=== PATIENT | male | born 1945 | race Caucasian/White ===

== ENCOUNTER 2018-03-20 17:13 | Day surgery (SDC) | payer MEDICARE ==
--- NOTE | 2018-03-20 17:43 | ER Report ---
History and Physical Time Seen By MD: 17:39 Hx. of Stated Complaint: abdominal pain in the lower right side for 12 hours. Patient has appendix and gallbladder still HPI/ROS CHIEF COMPLAINT: Abdominal pain HISTORY OF PRESENT ILLNESS: This is a 73-year-old male who presents to the emergency department for abdominal pain. Patient states that 9:00 this morning he was eating a bagel suddenly developed right lower quadrant pain. Did have some nausea associated with this, no vomiting. No dysuria or changes in bowel habits. Patient states he has had kidney stones in the past however this is different. No fevers, intermittent chills. No shortness of breath or chest pain. No headaches. No rashes. REVIEW OF SYSTEMS: Constitutional: As above. Eyes: No discharge. ENT: No sore throat. Cardiovascular: No chest pain, no palpitations. Respiratory: No cough, no shortness of breath. Gastrointestinal: As above. Genitourinary: No hematuria. Musculoskeletal: No back pain. Skin: No rashes. Neurological: No headache. Allergies: Coded Allergies: No Known Drug Allergies (Unverified , 11/19/12) Home Meds Active Scripts Hydrocodone Bit/Acetaminophen (NORCO 5-325 TABLET) 1 Each Tablet, 1-2 EACH PO q 4 h for PAIN, #14 TAB 0 Refills Prov:MIGUEL FERRO MD 03/20/18 Past Medical/Surgical History The patient has a past medical and surgical history of kidney stones, 3 episodes. Reviewed Nurses Notes: Yes Hx Smoking: No Exposure to Second Hand Smoke?: No Constitutional Vital Sign - Last 24 Hours 03/20/18 03/20/18 03/20/18 03/20/18 17:13 17:17 17:17 17:30 Temp 97.5 Pulse ??? 66 Resp 16 B/P (MAP) 168/88 (114) 168/88 125/87 (100) O2 Delivery Room Air 03/20/18 03/20/18 03/20/18 03/20/18 17:43 18:00 18:13 18:16 Pulse 72 76 B/P (MAP) 153/83 (106) Pulse Ox 92 85 O2 Flow Rate 2.0 03/20/18 03/20/18 03/20/18 18:30 19:01 19:13 B/P (MAP) 156/85 (108) 166/93 (117) Pulse Ox 95 Physical Exam General Appearance: The patient is alert, has no immediate need for airway p rotection and no signs of toxicity. Eyes: Pupils equal and round no pallor or injection. ENT, Mouth: Mucous membranes are moist. Respiratory: There are no retractions, lungs are clear to auscultation. Cardiovascular: Regular rate and rhythm, no murmurs, clicks or rubs. Gastrointestinal: Abdomen is soft , right lower quadrant pain at McBurney's point, positive rebound tenderness on the right, negative Toro sign. Very faint and hypoactive bowel sounds in all 4 quadrants. Skin: Warm and dry, no rashes. Musculoskeletal: Neck is supple non tender. Extremities are nontender, nonswollen and have full range of motion. DIFFERENTIAL DIAGNOSIS: After history and physical exam differential diagnosis was considered for abdominal pain including but not limited to appendicitis, cholecystitis, gastritis and urinary tract infection. Medical Decision Making Data Points Result Diagram: 03/20/18 1724 03/20/18 1724 Laboratory Hematology Test 03/20/18 17:24 03/20/18 18:58 Red Blood Count 5.47 M/uL (4.00-5.60) Mean Corpuscular Volume 93.4 fL (80.0-96.0) Mean Corpuscular Hemoglobin 31.5 pg (26.0-33.0) Mean Corpuscular Hemoglobin Concent 33.7 g/dL (32.0-36.0) Red Cell Distribution Width 13.9 % (11.5-14.5) Mean Platelet Volume 7.4 fL (7.2-11.1) Neutrophils (%) (Auto) 87.0 % (39.4-72.5) Lymphocytes (%) (Auto) 6.2 % (17.6-49.6) Monocytes (%) (Auto) 6.5 % (4.1-12.4) Eosinophils (%) (Auto) 0.1 % (0.4-6.7) Basophils (%) (Auto) 0.2 % (0.3-1.4) Nucleated RBC Relative Count (auto) 0.0 /100WBC Neutrophils # (Auto) 10.5 K/uL (2.0-7.4) Lymphocytes # (Auto) 0.8 K/uL (1.3-3.6) Monocytes # (Auto) 0.8 K/uL (0.3-1.0) Eosinophils # (Auto) 0.0 K/uL (0.0-0.5) Basophils # (Auto) 0.0 K/uL (0.0-0.1) Nucleated RBC Absolute Count (auto) 0.00 K/uL Sodium Level 137 mmol/L (137-145) Potassium Level 3.8 mmol/L (3.5-5.0) Chloride Level 106 mmol/L (98-107) Carbon Dioxide Level 25 mmol/L (22-30) Blood Urea Nitrogen 16 mg/dl (9-21) Creatinine 0.80 mg/dl (0.66-1.25) Glomerular Filtration Rate Calc > 60.0 Random Glucose 156 mg/dl (75-110) Calcium Level 9.3 mg/dl (8.4-10.2) Total Bilirubin 1.0 mg/dl (0.2-1.3) Aspartate Amino Transf (AST/SGOT) 26 U/L (0-35) Alanine Aminotransferase (ALT/SGPT) 28 U/L (0-56) Alkaline Phosphatase 95 U/L (0-126) Total Protein 7.6 g/dl (6.3-8.2) Albumin 4.2 g/dl (3.5-5.0) Lipase 49 U/L (23-300) Urine Color Yellow Urine Clarity Clear Urine pH 7.0 pH (4.8-9.5) Urine Specific [place] 1.035 Urine Protein Negative mg/dL (NEGATIVE) Urine Glucose (UA) Negative mg/dL (NEGATIVE) Urine Ketones Trace mg/dL (NEGATIVE) Urine Blood Negative (NEGATIVE) Urine Nitrite Negative (NEGATIVE) Urine Bilirubin Negative (NEGATIVE) Urine Urobilinogen Negative mg/dL (0.2-1.9) Urine Leukocyte Esterase Negative (NEGATIVE) Urine RBC 4 /HPF (0-2/HPF) Urine WBC <1 /HPF (0-5/HPF) Urine Squamous Epithelial Cells None /LPF (</=FEW) Urine Bacteria Negative /HPF (NONE-FEW) Urine Mucus None /HPF (NONE-FEW) Chemistry Test 03/20/18 17:24 03/20/18 18:58 White Blood Count 12.0 k/uL (4.5-11.0) Red Blood Count 5.47 M/uL (4.00-5.60) Hemoglobin 17.2 g/dL (14.0-18.0) Hematocrit 51.1 % (42.0-52.0) Mean Corpuscular Volume 93.4 fL (80.0-96.0) Mean Corpuscular Hemoglobin 31.5 pg (26.0-33.0) Mean Corpuscular Hemoglobin Concent 33.7 g/dL (32.0-36.0) Red Cell Distribution Width 13.9 % (11.5-14.5) Platelet Count 223 K/uL (150-450) Mean Platelet Volume 7.4 fL (7.2-11.1) Neutrophils (%) (Auto) 87.0 % (39.4-72.5) Lymphocytes (%) (Auto) 6.2 % (17.6-49.6) Monocytes (%) (Auto) 6.5 % (4.1-12.4) Eosinophils (%) (Auto) 0.1 % (0.4-6.7) Basophils (%) (Auto) 0.2 % (0.3-1.4) Nucleated RBC Relative Count (auto) 0.0 /100WBC Neutrophils # (Auto) 10.5 K/uL (2.0-7.4) Lymphocytes # (Auto) 0.8 K/uL (1.3-3.6) Monocytes # (Auto) 0.8 K/uL (0.3-1.0) Eosinophils # (Auto) 0.0 K/uL (0.0-0.5) Basophils # (Auto) 0.0 K/uL (0.0-0.1) Nucleated RBC Absolute Count (auto) 0.00 K/uL Glomerular Filtration Rate Calc > 60.0 Calcium Level 9.3 mg/dl (8.4-10.2) Total Bilirubin 1.0 mg/dl (0.2-1.3) Aspartate Amino Transf (AST/SGOT) 26 U/L (0-35) Alanine Aminotransferase (ALT/SGPT) 28 U/L (0-56) Alkaline Phosphatase 95 U/L (0-126) Total Protein 7.6 g/dl (6.3-8.2) Albumin 4.2 g/dl (3.5-5.0) Lipase 49 U/L (23-300) Urine Color Yellow Urine Clarity Clear Urine pH 7.0 pH (4.8-9.5) Urine Specific [place] 1.035 Urine Protein Negative mg/dL (NEGATIVE) Urine Glucose (UA) Negative mg/dL (NEGATIVE) Urine Ketones Trace mg/dL (NEGATIVE) Urine Blood Negative (NEGATIVE) Urine Nitrite Negative (NEGATIVE) Urine Bilirubin Negative (NEGATIVE) Urine Urobilinogen Negative mg/dL (0.2-1.9) Urine Leukocyte Esterase Negative (NEGATIVE) Urine RBC 4 /HPF (0-2/HPF) Urine WBC <1 /HPF (0-5/HPF) Urine Squamous Epithelial Cells None /LPF (</=FEW) Urine Bacteria Negative /HPF (NONE-FEW) Urine Mucus None /HPF (NONE-FEW) Urinalysis Test 03/20/18 18:58 Urine Color Yellow Urine Clarity Clear Urine pH 7.0 pH (4.8-9.5) Urine Specific [place] 1.035 Urine Protein Negative mg/dL (NEGATIVE) Urine Glucose (UA) Negative mg/dL (NEGATIVE) Urine Ketones Trace mg/dL (NEGATIVE) Urine Blood Negative (NEGATIVE) Urine Nitrite Negative (NEGATIVE) Urine Bilirubin Negative (NEGATIVE) Urine Urobilinogen Negative mg/dL (0.2-1.9) Urine Leukocyte Esterase Negative (NEGATIVE) Urine RBC 4 /HPF (0-2/HPF) Urine WBC <1 /HPF (0-5/HPF) Urine Squamous Epithelial Cells None /LPF (</=FEW) Urine Bacteria Negative /HPF (NONE-FEW) Urine Mucus None /HPF (NONE-FEW) EKG/Imaging Imaging Location: [facility] - [place] Patient: Mele Ramachandran : 1945 Visit/Account:[id number] Date of Sevice: 03/20/2018 CT ABDOMEN PELVIS W/ CON HISTORY: Right lower quadrant pain TECHNIQUE: Axial images were obtained through the abdomen and pelvis with intravenous contrast . One of the following dose optimization techniques was utilized in the performance of this exam: automated exposure control; adjustment of the mA and/or kv according to patient size; or use of iterative reconstruction technique. Specific details can be referenced in the facility's radiology CT exam operational policy. CONTRAST: 90 mL of Isovue-370 COMPARISON: CT abdomen/pelvis 01/03/2015. FINDINGS: Visualized lung bases: Negative. Hepatobiliary: Calcifications along the right lobe hepatic capsule. Simple hepatic cysts and a stable nodular enhancing 3.6 x 2.3 x 3.2 cm lesion within the left lobe of the liver which is likely a hemangioma Spleen: Negative. Adrenals: Negative. Pancreas: Negative. Kidneys/ureters/bladder: 8 mm left midpole renal lesion does not have the appearance of a simple cyst (series 2 image 46) which has slightly increased in conspicuity. No hydronephrosis. 4 mm simple left midpole renal cyst. Bowel/peritoneum/mesentery: Abnormal appendix. Appendix measures 12 mm in diameter with a thick enhancing wall and stranding of the adjacent fat consistent with acute appendicitis. No bowel obstruction, free air or abscess. Colonic diverticulosis without acute inflammatory change. Vessels: Negative. Lymph nodes: Negative. Pelvic genitourinary: Moderate prostate enlargement. Bones/body wall: Stable 8 mm sclerotic lesion within the right iliac bone, likely a bone island. Multilevel mild degenerative disc disease within the spine.. Other findings: None significant IMPRESSION: 1. Acute uncomplicated appendicitis. 2. Stable left lobe liver lesion most consistent with a hemangioma. 3. An 8 mm left midpole renal lesion does not have the appearance of a simple cyst and has slightly increased in conspicuity since prior examination. Consider six-month follow-up CT with and without contrast (renal mass protocol) for further evaluation. Results were called to MARIA ANTONIA PURDY at 03/20/2018 7:13 PM. Report Dictated By: Bryan Guerra MD at 03/20/2018 6:58 PM Report E-Signed By: Bryan Guerra MD at 03/20/2018 7:13 PM [id number] ED Course/Re-evaluation Clinical Indication for ER IV: Hydration, IV Access ED Course The patient was admitted to a room. A history and physical were obtained. Differential diagnoses were considered. An IV was started. A CBC, CMP and lipase were obtained. A 1 L normal saline bolus was given. 4 mg IV Zofran, 4 mg IV morphine were given. Patient had moderate to significant relief of symptoms after the pain medications.CBC showing white count of 12.0 with a left shift, chemistry showing glucose 156 otherwise unremarkable, unremarkable UA. A CT of the abdomen and pelvis Showing acute uncomplicated appendicitis, stable left lobe liver lesion most consistent with hemangioma. I reviewed the results with the patient. Did explain to him that this is not acute appendicitis, I recommendation was consultation with the general surgeon, the patient agreed. I did speak with Dr. Ferro, the surgeon on-call, the OR crew was contacted and called in. Patient was given 3.375 Zosyn and 20 mg IV famotidine. The patient's last oral intake was at 3 PM. The patient was admitted to the OR, Dr. Ferro did come down and speak with the patient regarding the surgery. No other questions or concerns at the time of admission. 03/20/2018 7:19:16 pm I did speak with Dr. Ferro, the surgeon on-call, rate discussed the case, the patient's will be admitted to the OR for an acute appendicitis. Last oral intake for the patient was at 1500, sips of kimberly ingris. Decision to Disposition Date: Mar 20, 2018 Decision to Disposition Time: 19:19 Depart Departure Latest Vital Signs Vital Signs Date Time Temp Pulse Resp B/P (MAP) Pulse Ox O2 Delivery O2 Flow Rate FiO2 03/20/18 19:13 95 03/20/18 19:01 166/93 (117) 03/20/18 18:16 2.0 03/20/18 18:13 76 03/20/18 17:17 97.5 16 Room Air Impression: Primary Impression: Appendicitis Condition: Improved Disposition: ADMIT FROM ER TO OR Referrals: GRAHAM RÍOS (PCP) New Scripts Hydrocodone Bit/Acetaminophen (NORCO 5-325 TABLET) 1 Each Tablet 1-2 EACH PO q 4 h for PAIN, #14 TAB 0 Refills Prov: MIGUEL FERRO MD 03/20/18 Problem Qualifiers Primary Impression: Appendicitis Appendicitis type: acute appendicitis Acute appendicitis type: with localized peritonitis Appendicitis gangrene presence: without gangrene Appendicitis perforation presence: without perforation Appendicitis abscess presence: without abscess Qualified Codes: K35.30 - Acute appendicitis with localized peritonitis, without perforation or gangrene MARIA ANTONIA PURDY PULP TESTER-BC Mar 20, 2018 17:43
[2018-03-20] MEDS ORDERED: NS(*) 0.9% 1000 ML BAG 1,000 ML IV ONE (17:57)
[2018-03-20] MEDS ORDERED: ONDANSETRON 4 MG/2 ML VIAL IVP ONE (18:00)
[2018-03-20] MEDS ORDERED: MORPHINE 4 MG/ML SDV IVP ONE (18:00)
[2018-03-20 18:09] LABS: PLATELET COUNT, AUTOMATED 223 K/uL (150-450)
[2018-03-20] MEDS ORDERED: IOPAMIDOL 76% 100 ML INFUS BTL 100 ML ONE (18:17)
[2018-03-20 19:01] VITALS: BP 166/93
[2018-03-20] MEDS ORDERED: PIPERACILLIN/TAZO*3.375GM VIAL 3.375 GM in NS(*) 0.9% 100 ML ADDVANT BAG 100 ML IVPB ONE (19:10)
--- NOTE | 2018-03-20 19:16 | RADIOLOGY IMAGING REPORT ---
[place]AC[place] [facility] [place] NAME: Mele Ramachandran : 1945 MR: [id number] V: [id number] EXAM DATE: ORDERING PHYSICIAN: MARIA ANTONIA PURDY TECHNOLOGIST: Location: [facility] Patient: Mele Ramachandran : 1945 Visit/Account:[id number] Date of Sevice: 03/20/2018 CT ABDOMEN PELVIS W/ CON HISTORY: Right lower quadrant pain TECHNIQUE: Axial images were obtained through the abdomen and pelvis with intravenous contrast . One of the following dose optimization techniques was utilized in the performance of this exam: automate d exposure control; adjustment of the mA and/or kv according to patient size; or use of iterative rec onstruction technique. Specific details can be referenced in the facility's radiology CT exam operati onal policy. CONTRAST: 90 mL of Isovue-370 COMPARISON: CT abdomen/pelvis 01/03/2015. FINDINGS: Visualized lung bases: Negative. Hepatobiliary: Calcifications along the right lobe hepatic capsule. Simple hepatic cysts and a stab le nodular enhancing 3.6 x 2.3 x 3.2 cm lesion within the left lobe of the liver which is likely a h emangioma Spleen: Negative. Adrenals: Negative. Pancreas: Negative. Kidneys/ureters/bladder: 8 mm left midpole renal lesion does not have the appearance of a simple cys t (series 2 image 46) which has slightly increased in conspicuity. No hydronephrosis. 4 mm simple l eft midpole renal cyst. Bowel/peritoneum/mesentery: Abnormal appendix. Appendix measures 12 mm in diameter with a thick enh ancing wall and stranding of the adjacent fat consistent with acute appendicitis. No bowel obstructi on, free air or abscess. Colonic diverticulosis without acute inflammatory change. Vessels: Negative. Lymph nodes: Negative. Pelvic genitourinary: Moderate prostate enlargement. Bones/body wall: Stable 8 mm sclerotic lesion within the right iliac bone, likely a bone island. Mu ltilevel mild degenerative disc disease within the spine.. Other findings: None significant IMPRESSION: 1. Acute uncomplicated appendicitis. 2. Stable left lobe liver lesion most consistent with a hemangioma. 3. An 8 mm left midpole renal lesion does not have the appearance of a simple cyst and has slightly increased in conspicuity since prior examination. Consider six-month follow-up CT with and without c ontrast (renal mass protocol) for further evaluation. Results were called to MARIA ANTONIA PURDY at 03/20/2018 7:13 PM. Report Dictated By: Bryan Guerra MD at 03/20/2018 6:58 PM Report E-Signed By: Bryan Guerra MD at 03/20/2018 7:13 PM WSN:[email or web address]
[2018-03-20] MEDS ORDERED: FAMOTIDINE(*) 20MG/50ML PREMIX 50 ML IVPB ONE (19:20)
[2018-03-20] MEDS ORDERED: NORMOSOL R SOLN(*) 1000 ML BAG 1,000 ML IV ONE (19:20)
[2018-03-20] MEDS ORDERED: BUPIV/EPI 0.25% 1:200,000 50ML INFIL ONE (19:21)
[2018-03-20] MEDS ORDERED: DEXAMETHASONE SOD 4 MG/ML VIAL ONE (19:26)
[2018-03-20] MEDS ORDERED: PROPOFOL EMUL(*) 10MG/ML 20 ML 20 ML ONE (19:27)
[2018-03-20] MEDS ORDERED: ONDANSETRON 4 MG/2 ML VIAL ONE (19:27)
[2018-03-20] MEDS ORDERED: LIDOCAINE MPF 1% 5 ML VIAL ONE (19:27)
[2018-03-20] MEDS ORDERED: fentaNYL CITR 100 MCG/2 ML AMP ONE (19:29)
[2018-03-20] MEDS ORDERED: SUGAMMADEX SOD 200 MG/2 ML SDV ONE (19:30)
--- NOTE | 2018-03-20 19:49 | Gen Surgery History & Physical ---
History of Present Illness Chief Complaint RLQ History of Present Illness This 73 year old healthy male with acute onset of RLQ early this morning, associated with nausea and anorexia. Denies fever, but has felt chills. Denies change in BM's. Denies dysuria. Evaluated in Ed with CT and labs. Patient with obvious appendicitis on CT and leukocytosis. History Allergies: Coded Allergies: No Known Drug Allergies (Unverified , 11/19/12) Review of Systems Constitutional: Chills Gastrointestinal: Nausea, Abdominal Pain Exam General Appearance: Alert, Awake, No Acute Distress, Afebrile Neuro: No Gross deficits Eyes: PERRLA ENT: Moist Mucous Membranes Cardiovascular: Regular Rate and Rhythm Respiratory: No Respiratory Distress, Clear to Auscultation GI: Other (Abdomen flat soft, markedly tender in RLQ with rebound and percussion tenderness.) Extremities: Soft and Non Tender Psych: Alert & Oriented X3, Appropriate Mood & Affect Medical Decision Making Data Points Result Diagram: 03/20/18172303/20/181723 Assessment and Plan Problems: (1) Appendicitis Status: Acute Assessment & Plan: I discussed the possible treatment options, the planned procedure of laparoscopic appendectomy including risks and possible complicatio ns. Oliver and his have had all their questions answered. Oliver wishes to procedd with surgery. Informed consent obtained. Zosyn 3.375 gm IV ordered. Time Spent: < 30 min Venous Thromboembolism VTE Risk Physician Assess for VTE Risk: Yes Patient's VTE Risk: Low VTE Diagnostic Test 2 Days Prior to Admit: No Antithrombotics Is Pt On Any Antithrombotics?: No Prophylaxis Tx Contraindicated Pharmacological Contraindicati: Pt at Low Risk for VTE Mechanical Contraindications: Pt at Low Risk for VTE Problem Qualifiers (1) Appendicitis: Appendicitis type: acute appendicitis Acute appendicitis type: with localized peritonitis Appendicitis gangrene presence: without gangrene Appendicitis perforation presence: without perforation Appendicitis abscess presence: without abscess Qualified Codes: K35.30 - Acute appendicitis with localized peritonitis, without perforation or gangrene MIGUEL ALLEN MD Mar 20, 2018 19:49
[2018-03-20] MEDS ORDERED: NS 0.9% IRRIGATION 1000ML PLCT IR ONE (20:37)
--- NOTE | 2018-03-20 21:04 | Post Operative Progress Note ---
Post Operative Progress Note Date: Mar 20, 2018 Time: 20:57 Surgeon: Kasie Buffet Runner: BERENICE Anesthesia: General Pre-Op Diagnosis: Acute appendicitis Post-Op Diagnosis: same Findings: acute suppurative Procedure(s): Laparoscopic appendectomy Specimen Removed:(May be N/A): Appendix to pathology Complications: none Estimated Blood Loss: < 5 ml Date OP Note Dictated: Mar 20, 2018 Time OP Note Dictated: 20:58 MIGUEL ALLEN MD Mar 20, 2018 21:04
--- NOTE | 2018-03-20 21:05 | Short(Outpt) Discharge Summary ---
Discharge Summary Reason for Hosp/Final Diag: (1) Appendicitis Status: Acute Hospital Course & Plan: I discussed the possible treatment options, the planned procedure of laparoscopic appendectomy including risks and possible complications. Oliver and his have had all their questions answered. Oliver wishes to procedd with surgery. Informed consent obtained. Zosyn 3.375 gm IV ordered. Departure Discharge to: Home Discharge Instructions Diet: Regular Activity: As Tolerated Special Instructions: Follow up either with Dr. López or Dr. Kraft in 7-10 days. Problem Qualifiers (1) Appendicitis: Appendicitis type: acute appendicitis Acute appendicitis type: with localized peritonitis Appendicitis gangrene presence: without gangrene Appendicitis perforation presence: without perforation Appendicitis abscess presence: without abscess Qualified Codes: K35.30 - Acute appendicitis with localized peritonitis, without perforation or gangrene MIGUEL ALLEN MD Mar 20, 2018 21:05
[2018-03-20] MEDS ORDERED: HYDR-653 PO (21:10)
[2018-03-20] MEDS ORDERED: APAP/HYDROCODONE 325/5 TAB ONE (21:34)
[2018-03-20] MEDS ORDERED: ACET/HYDROC 5/325MG TH ER ONLY 2 TAB/BOTTLE ONE (22:00)
--- NOTE | 2018-03-21 02:55 | OPERATIVE REPORT 1 ---
EVENT DATE: March 20, 2018 SURGEON: Sandeep Ferro MD ANESTHESIOLOGIST: Cristian Patel MD ANESTHESIA: General endotracheal anesthesia. MANAGER TRANSIT: assisted living coordinator. PREOPERATIVE DIAGNOSIS Acute appendicitis. POSTOPERATIVE DIAGNOSIS Acute suppurative appendicitis, AAST grade 1. PROCEDURE PERFORMED Laparoscopic appendectomy. SPECIMENS Appendix to Pathology. DESCRIPTION OF PROCEDURE Mr. Ramachandran was taken to the operating room and placed in the supine position after induction of adequate general endotracheal anesthesia. The abdomen was prepped and draped in the usual sterile fashion. A time-out was taken. SCDs were in place. The patient had received the Zosyn 3.375 g preoperatively. The prep was dry. Attention was then turned to the umbilicus, where incision was made at the infraumbilical fold. This was carried through the skin and subcutaneous tissue. The midline fascia was identified. The fascia was then incised. Using careful blunt dissection with a hemostat, the peritoneal cavity was opened under direct visualization. An 0 Vicryl [id number] suture was placed in the fascia. A 12 mm port was then inserted. Pneumoperitoneum was created. The laparoscope was then introduced. General inspection was remarkable for evidence of an acute suppurative appendicitis. There was no evidence of perforation or periappendiceal abscess. Two 5 mm ports were then placed, one in the right upper quadrant and one in the left lower quadrant. The mesoappendix was then grasped. The mesoappendix was divided with the harmonic scalpel. There appeared to be fullness at the base of the appendix; therefore, additional mesoappendix was taken down to assure that a small cuff of cecum could be resected with the appendix. Using the GUANACO stapling device passed through the 12 mm port and a 5 mm scope connected to the camera in the right upper quadrant, the GUANACO stapling device was then positioned over the cecum at the base of the appendix. A blue load was used. The stapler was fired. A second load was required. With the specimen free, an Endopouch was introduced via the umbilical port and the specimen removed. The specimen was submitted to pathology for histologic evaluation. Using the suction breakfast server, the operative site was irrigated with copious amounts of saline. Adequate hemostasis was confirmed. The 5 mm ports were removed under direct visualization, and hemostasis noted at each port site. The 12 mm port was removed after complete evacuation of the pneumoperitoneum. The fascia was then closed with the 0 Vicryl suture previously placed, as well as an additional 0 Vicryl [id number] suture. The wounds were then closed with interrupted 3-0 Vicryl sutures deep, followed by closure of the skin with simple running 4-0 Monocryl subcuticular suture and Dermabond. Sponge, needle and instrument counts were correct. The patient tolerated this well, was taken to the PACU in stable condition. He will be discharged home and followed up as an outpatient. Wound care and aftercare instructions are provided. BISHOP
== END 2018-03-20 22:45 | disposition home or self-care (01) ==
LOC: ER 17:23 → OR 19:14
PROVIDERS: ATTEND Surgery
DX: K35.80 Unspecified acute appendicitis (principal)
CPT/HCPCS: 44970; 74177; 81001; 83690; 85025; 88304; 96361; 96374; 96375; 99285; A9270; J1100; J2001; J2270; J2405; J2543; J2704; J3010; J3490; J7030; J7050; Q9967; 82040; 82247; 82310; 82374; 82435; 82565; 82947; 84075; 84132; 84155; 84295; 84450; 84460; 84520